=== PATIENT | female | born 1980 | race Caucasian/White ===

== ENCOUNTER 2019-06-11 22:37 | Emergency (ER) | payer OTHER, SELFPAY ==
--- NOTE | ~2019-06-11 | XR_ITS ---
CORRECTED REPORT INDICATION: Left changed to right. 06/27/2019 sef XR toe 1st RT min 2V DATE: 06/11/2019 23:06 INDICATION: Stubbed toe on dresser. RIGHT great toe pain TECHNIQUE: 4 views COMPARISON: None FINDINGS: No fracture, dislocation, periosteal reaction or bone destruction of the right great toe. Os tibiale externum, normal variant. IMPRESSION: No fracture or dislocation of left great toe Reviewed, dictated and finalized at location A. [facility] LICENSE REVIEWING OFFICER MTDD
[2019-06-11 22:39] VITALS: BP 160/85; PULSE 109; RESP 18; TEMP 36.4; O2SAT 99
--- NOTE | 2019-06-11 22:46 | ED_ITS ---
I attest that this documentation has been prepared under the direction and in the presence of Olivier Matthew MD. Greg Ferrera, Scribe 06/11/19;22:46 HPI - Extremity Injury (Lower) General Chief Complaint: Extremity Injury, Lower Stated Complaint: RIGHT TOE PAIN Time Seen by Provider: 06/11/19 22:45 Related Data Allergies Allergy/AdvReac Type Severity Reaction Status Date / Time aspirin Allergy Intermediate LIPS SWELL Verified 01/21/19 15:14 naproxen Allergy Intermediate LIPS SWELL Verified 01/21/19 15:14 Penicillins Allergy Mild RASH Verified 01/21/19 15:14 Course Vital Signs Vital signs: Vital Signs Temperature 36.4 C 06/11/19 22:39 Pulse Rate 109 H 06/11/19 22:39 Respiratory Rate 18 06/11/19 22:39 Blood Pressure 160/85 H 06/11/19 22:39 Pulse Oximetry 99 06/11/19 22:39 Temperature 36.4 C 06/11/19 22:39 Pulse Rate 109 H 06/11/19 22:39 Respiratory Rate 18 06/11/19 22:39 Blood Pressure 160/85 H 06/11/19 22:39 Pulse Oximetry 99 06/11/19 22:39
--- NOTE | 2019-06-11 22:47 | ED.GENADULT ---
HPI - General Adult General Chief complaint: Extremity Injury, Lower Stated complaint: RIGHT TOE PAIN Time Seen by Provider: 06/11/19 22:45 Source: patient Mode of arrival: ambulatory Limitations: no limitations History of Present Illness HPI narrative: The pt is a 39 y/o female who presents to the ED c/o right first toe pain onset today. Pt states that she was pushing a dresser with her mother when the dresser was driven into her foot. She states that the pain radiates up the right foot. The pt states that she took Aleve x2 without relief. Pt denies right first toe numbness. MD complaint: Right 1st toe pain Location: lower extremity (Right first toe) Radiation: other (up the right foot) Relieving factors: none Associated symptoms: denies other symptoms Treatments prior to arrival: other (Aleve x2) Related Data Allergies Allergy/AdvReac Type Severity Reaction Status Date / Time aspirin Allergy Intermediate LIPS SWELL Verified 06/11/19 22:47 naproxen Allergy Intermediate LIPS SWELL Verified 06/11/19 22:47 Penicillins Allergy Mild RASH Verified 06/11/19 22:47 Review of Systems Review of Systems: All systems reviewed & are unremarkable except as noted in HPI and below Musculoskeletal: Musculoskeletal: Reports other (Right first toe pain) Neurologic: Denies numbness (Right first toe) [facility] Past Medical History Medical History (Updated 06/11/19 @ 23:15 by Olivier Matthew MD) Abnormal uterine bleeding Appendicitis Bilateral ankle fractures Elbow fracture, right Gallbladder disease IUD (intrauterine device) in place Ovarian cyst Surgical History Surgical History (Updated 06/11/19 @ 22:53 by Greg Ferrera) H/O: hysterectomy History of appendectomy History of cholecystectomy History of tonsillectomy and adenoidectomy Social History Social History (Updated 06/11/19 @ 22:54 by Greg Ferrera) Smoking packs per day: 0.5 Smoking cigarettes per day: 10.0 Years smoked: 11 Smoking pack-years: 5.50 Smoking status: Current every day smoker Tobacco type: cigarettes Additional smoking assessment comments: Pt used to smoke 1 PPD for 10 years, smoked 0.5 PPD for 1 year Exam Const: General: healthy appearing, no acute distress and alert Orientation/consciousness: oriented x3 HENMT: Head: normal to inspection Resp: Effort & Inspection: normal respiratory effort Auscultation: clear to auscultation bilaterally Cardio: Rate: regular rate Rhythm: regular rhythm Heart sounds: no murmurs Skin: General skin exam: normal color Trauma: other (Separation of the toe nail distally on the nailbed from the right first toe) Neuro: General: oriented x3 and moves all extremities Sensory Exam: normal sensation Extrem: Right lower extremity: foot Details: tenderness Location: of the great toe Location: over the nailbed Psych: Mental Status: mental status grossly normal Affect: normal affect Course Vital Signs Vital signs: Vital Signs Temperature 36.4 C 06/11/19 22:39 Pulse Rate 109 H 06/11/19 22:39 Respiratory Rate 18 06/11/19 22:39 Blood Pressure 160/85 H 06/11/19 22:39 Pulse Oximetry 99 06/11/19 22:39 Temperature 36.4 C 06/11/19 22:39 Pulse Rate 109 H 06/11/19 22:39 Respiratory Rate 18 06/11/19 22:39 Blood Pressure 160/85 H 06/11/19 22:39 Pulse Oximetry 99 06/11/19 22:39 Medical Decision Making Vital Signs Vital Signs: Vital Signs Temperature 36.4 C 06/11/19 22:39 Pulse Rate 109 H 06/11/19 22:39 Respiratory Rate 18 06/11/19 22:39 Blood Pressure 160/85 H 06/11/19 22:39 Pulse Oximetry 99 06/11/19 22:39 Temperature 36.4 C 06/11/19 22:39 Pulse Rate 109 H 06/11/19 22:39 Respiratory Rate 18 06/11/19 22:39 Blood Pressure 160/85 H 06/11/19 22:39 Pulse Oximetry 99 06/11/19 22:39 Discharge Plan Discharge Clinical Impression: Closed fracture of toe Patient Disposition: Home, Self-Care Condition: Stable Instructi
--- NOTE | 2019-06-11 22:54 | PC.NURSE ---
Patient states she has no allergy to Ibuprofen.
[2019-06-11] MEDS: ACETAMINOPHEN 500 MG TABLET 1000 MG PO (22:55)
[2019-06-11] MEDS: IBUPROFEN 400 MG TABLET PO (22:56)
[2019-06-11 23:22] VITALS: TEMP 36.4
[2019-06-11 23:23] VITALS: BP 137/71; PULSE 71; RESP 16; TEMP 36.4; TEMP 36.7; O2SAT 99
== END 2019-06-11 23:28 | disposition home or self-care (01) ==
PROVIDERS: Emergency Provider Emergency Medicine
DX: S92.401A Displaced unspecified fracture of right great toe, initial encounter for closed fracture (principal); W22.8XXA Striking against or struck by other objects, initial encounter; F17.210 Nicotine dependence, cigarettes, uncomplicated; Z97.5 Presence of (intrauterine) contraceptive device
CPT/HCPCS: 73660; 99283; A9270

== ENCOUNTER 2019-12-27 21:10 | Emergency (ER) | payer OTHER, SELFPAY ==
[2019-12-27 21:16] VITALS: BP 165/98; PULSE 99; RESP 18; TEMP 36.9; O2SAT 100
--- NOTE | 2019-12-28 00:13 | ED.GENADULT ---
HPI - General Adult General Chief complaint: Unspecified Stated complaint: foul smelling nasal discharge,Lt face swelling Time Seen by Provider: 12/27/19 22:16 Source: patient Mode of arrival: ambulatory Limitations: no limitations History of Present Illness HPI narrative: This patient is a 39 year old female who presents for evaluation of left sinus pressure. She reports has nasal congestion and mild left cheek pain x 2 days. Today she reports she blew her nose and she saw foul green discharge. She denies fever, chills, nausea, vomiting or dizziness. She just states she has severe pressure pain. Onset (ago): day(s) Related Data Allergies Allergy/AdvReac Type Severity Reaction Status Date / Time aspirin Allergy Intermediate LIPS SWELL Verified 12/27/19 22:32 naproxen Allergy Intermediate LIPS SWELL Verified 12/27/19 22:32 Penicillins Allergy Mild RASH Verified 12/27/19 22:32 Review of Systems Review of Systems: All systems reviewed & are unremarkable except as noted in HPI and below Constitutional: Constitutional: Denies chills and Denies fever(s) ENT: Denies dizziness, Reports facial pain, Reports nasal congestion, Reports nasal discharge, Reports sinus pain and Denies sore throat Respiratory: Respiratory: Denies cough and Denies dyspnea PMFSH Past Medical History Medical History Abnormal uterine bleeding Appendicitis Bilateral ankle fractures Elbow fracture, right Gallbladder disease IUD (intrauterine device) in place Ovarian cyst Surgical History Surgical History H/O: hysterectomy History of appendectomy History of cholecystectomy History of tonsillectomy and adenoidectomy Social History Social History (Updated 06/11/19 @ 22:54 by Greg Ferrera) Smoking packs per day: 0.5 Smoking cigarettes per day: 10.0 Years smoked: 11 Smoking pack-years: 5.50 Smoking status: Current every day smoker Tobacco type: cigarettes Additional smoking assessment comments: Pt used to smoke 1 PPD for 10 years, smoked 0.5 PPD for 1 year Exam Const: General: no acute distress and alert Orientation/consciousness: patient oriented x3 HENMT: Head: normocephalic and atraumatic Ears: TM abnormal with fluid behind the TM bilateral General nose exam: Abnormal mucous membranes and turbinates present boggy and Nasal discharge present mucoid Face and sinus: sinus tenderness maxillary (left) and Facial tenderness on exam of face and sinuses on the left Mouth: Yes Normal oral and palatal mucosa present, Yes lip normal and Yes oropharynx normal Throat: posterior oropharynx normal, tonsils normal and uvula midline Chest: Chest palpation & inspection: normal inspection of the chest Resp: Effort & Inspection: normal respiratory effort Skin: General skin exam: normal color Rashes: no rashes Neuro: General: patient oriented x3 and moves all extremities Extrem: General: normal to inspection Course Reevaluation(s) Reevaluation #1: I have discussed with patient that she will be treated for acute sinusitis. Date: 12/28/19 Time: 00:19 Vital Signs Vital signs: Vital Signs Temperature 98.5 F 12/27/19 21:16 Pulse Rate 99 12/27/19 21:16 Respiratory Rate 18 12/27/19 21:16 Blood Pressure 165/98 H 12/27/19 21:16 Pulse Oximetry 100 12/27/19 21:16 Temperature 98.5 F 12/27/19 21:16 Pulse Rate 90 12/28/19 00:44 Respiratory Rate 16 12/28/19 00:44 Blood Pressure 158/79 H 12/28/19 00:44 Pulse Oximetry 100 12/28/19 00:44 Medical Decision Making Vital Signs Vital Signs: Vital Signs Temperature 98.5 F 12/27/19 21:16 Pulse Rate 99 12/27/19 21:16 Respiratory Rate 18 12/27/19 21:16 Blood Pressure 165/98 H 12/27/19 21:16 Pulse Oximetry 100 12/27/19 21:16 Temperature 98.5 F 12/27/19 21:16 Pulse Rate 90 12/28/19 00:44 Respiratory Rate 16
[2019-12-28 00:44] VITALS: BP 158/79; PULSE 90; RESP 16; O2SAT 100
== END 2019-12-28 00:44 | disposition home or self-care (01) ==
PROVIDERS: Emergency Provider General Practice
DX: J32.9 Chronic sinusitis, unspecified (principal); B96.89 Other specified bacterial agents as the cause of diseases classified elsewhere; F17.210 Nicotine dependence, cigarettes, uncomplicated
CPT/HCPCS: 99283

== ENCOUNTER 2020-01-09 17:23 | Emergency (ER) | payer OTHER, SELFPAY ==
--- NOTE | ~2020-01-09 | XR_ITS ---
XR foot LT min 3V 01/09/2020 18:30 INDICATION: Left foot pain PROCEDURE: 4 views left foot COMPARISON: No prior studies for comparison. FINDINGS: Fracture, dislocation or subluxation is not identified. Lisfranc joint is intact. The soft tissues appear within normal limits. No foreign bodies are identified. There are small degenerative calcaneal enthesophytes. IMPRESSION: 1: NO ACUTE BONE OR JOINT ABNORMALITY IDENTIFIED. Reviewed, dictated and finalized at location A.
[2020-01-09 18:01] VITALS: BP 153/83; PULSE 102; RESP 20; TEMP 37; O2SAT 100
--- NOTE | 2020-01-09 20:12 | ED.GENADULT ---
HPI - General Adult General Chief complaint: Extremity Injury, Lower Stated complaint: left foot injury Time Seen by Provider: 01/09/20 19:59 Source: patient Mode of arrival: ambulatory Limitations: no limitations History of Present Illness HPI narrative: Patient is a 40-year-old female who presents after rolling the ankle while ambulating presents noting moderate aching pain to the lateral midfoot and ankle worse with weightbearing and activity presents with a walking boot also has crutches at home is taken ibuprofen with minimal improvement denies other injuries or complaints and on arrival is in the room in no distress Related Data Allergies Allergy/AdvReac Type Severity Reaction Status Date / Time aspirin Allergy Intermediate LIPS SWELL Verified 12/27/19 22:32 naproxen Allergy Intermediate LIPS SWELL Verified 12/27/19 22:32 Penicillins Allergy Mild RASH Verified 12/27/19 22:32 Review of Systems Review of Systems: All systems reviewed & are unremarkable except as noted in HPI and below PMFSH Past Medical History Medical History Abnormal uterine bleeding Appendicitis Bilateral ankle fractures Elbow fracture, right Gallbladder disease IUD (intrauterine device) in place Ovarian cyst Surgical History Surgical History H/O: hysterectomy History of appendectomy History of cholecystectomy History of tonsillectomy and adenoidectomy Social History Social History Smoking packs per day: 0.5 Smoking cigarettes per day: 10.0 Years smoked: 11 Smoking pack-years: 5.50 Smoking status: Current every day smoker Tobacco type: cigarettes Additional smoking assessment comments: Pt used to smoke 1 PPD for 10 years, smoked 0.5 PPD for 1 year Exam Narrative: Exam Narrative: GENERAL: Well-appearing, well-nourished, and in no acute distress. HEAD: Normocephalic, atraumatic. EYES: PERRLA and EOMI. ENT: Nares clear, no rhinorrhea or epistaxis. Mucous membranes moist. EXTREMITIES: Normal range of motion. No edema. Slight swelling and tenderness along the left lateral midfoot and ankle SKIN: Warm, dry, no rash. NEURO: No focal deficits. Alert and oriented x3. Neurovascularly intact. Capillary refill less than 2 seconds PSYCH: Normal mood and affect. Course Course Emergency Course: Patient in the room in no distress aware of case findings treatment plan and diagnosis agreeing to follow-up as directed or to return if symptoms worsen or concerns Vital Signs Vital signs: Vital Signs Temperature 98.6 F 01/09/20 18:01 Pulse Rate 102 H 01/09/20 18:01 Respiratory Rate 01/09/20 18:01 Blood Pressure 153/83 H 01/09/20 18:01 Pulse Oximetry 100 01/09/20 18:01 Temperature 98.6 F 01/09/20 18:01 Pulse Rate 102 H 01/09/20 18:01 Respiratory Rate 01/09/20 18:01 Blood Pressure 153/83 H 01/09/20 18:01 Pulse Oximetry 100 01/09/20 18:01 Medical Decision Making MDM Narrative Medical decision making narrative: Patients injury or pain is consistent with musculoskeletal etiology. No signs of neurological or vascular compromise on exam. Compartments and tisues are soft without signs of compartment syndrome. Pain is felt appropriate for further evaluation on an outpatient basis. Vital Signs Vital Signs: Vital Signs Temperature 98.6 F 01/09/20 18:01 Pulse Rate 102 H 01/09/20 18:01 Respiratory Rate 01/09/20 18:01 Blood Pressure 153/83 H 01/09/20 18:01 Pulse Oximetry 100 01/09/20 18:01 Temperature 98.6 F 01/09/20 18:01 Pulse Rate 102 H 01/09/20 18:01 Respiratory Rate 01/09/20 18:01 Blood Pressure 153/83 H 01/09/20 18:01 Pulse Oximetry 100 01/09/20 18:01 Discharge Plan Discharge Clinical Impression: Ankle sprain and strain Patient Disposition: Home, Self-Care Condition: Stable Ins
[2020-01-09 20:54] VITALS: BP 132/70; PULSE 80; RESP 18; O2SAT 98
== END 2020-01-09 20:56 | disposition home or self-care (01) ==
LOC: ANHED 20:28
PROVIDERS: Emergency Provider Emergency Medicine
DX: S96.912A Strain of unspecified muscle and tendon at ankle and foot level, left foot, initial encounter (principal); S93.402A Sprain of unspecified ligament of left ankle, initial encounter; Z97.5 Presence of (intrauterine) contraceptive device; F17.210 Nicotine dependence, cigarettes, uncomplicated; X50.9XXA Other and unspecified overexertion or strenuous movements or postures, initial encounter; Y93.01 Activity, walking, marching and hiking
CPT/HCPCS: 73630; 99283